=== PATIENT | male | born 1985 | race Caucasian/White ===

== ENCOUNTER 2017-11-30 10:05 | Inpatient (IN) | payer BC ==
[~2017-11-30] VITALS: Ht 180.3 cm; Wt 112.5 kg
[2017-11-30] MEDS ORDERED: ACETAMINOPHEN 500 MG TABLET PO PRN (10:45)
[2017-11-30] MEDS ORDERED: ONDANSETRON PF 4 MG/2 ML VIAL. IV PRN (10:45)
[2017-11-30 11:05] VITALS: BP 122/82
[2017-11-30 11:11] LABS: ALBUMIN 3.6 g/dL (3.4-5.0); ALBUMIN/GLOBULIN RATIO 0.8 (1.0-1.7); CALCIUM 9.1 mg/dL (8.5-10.1); GFR 87.7; POTASSIUM 3.8 mmol/L (3.5-5.1); TOTAL BILIRUBIN 2.3 mg/dL (0.2-1.0); TOTAL PROTEIN 7.9 g/dL (6.4-8.2)
[2017-11-30] MEDS: IV NORMAL SALINE 1,000ML 1,000 ML IV SCH ×2 (11:11→20:46)
[2017-11-30 11:12] LABS: BASO # 0.1 x10^3/uL (0.0-0.2); BASO % 1 % (0-3); EOS # 0.1 x10^3/uL (0.0-0.7); EOS % 1 % (0-3); HEMOGLOBIN 14.7 g/dL (13.0-17.5); LYMPH # 2.4 x10^3/uL (1.0-4.8); LYMPH % 20 % (24-48); MEAN CORPUSCULAR HEMOGLOBIN 30 pg (25-35); MEAN CORPUSCULAR HGB CONC 35 g/dL (31-37); MEAN CORPUSCULAR VOLUME 87 fL (79-100); MONO # 1.5 x10^3/uL (0.0-1.1); MONO % 13 % (0-9); NEUT # 7.9 x10^3uL (1.8-7.7); NEUT % 66 % (31-73); PLATELET COUNT 207 x10^3/uL (140-400); RED BLOOD COUNT 4.83 x10^6/uL (4.30-5.70); RED CELL DISTRIBUTION WIDTH 13.6 % (11.5-14.5)
--- NOTE | 2017-11-30 11:29 | RAD ---
PROCEDURE: CHEST PA LATERAL CLINICAL INDICATION: cough/sob COMPARISON: None FINDINGS: No pneumothorax identified. Cardiac and mediastinal contours unremarkable. No pulmonary consolidation or acute airspace disease. No acute osseous abnormalities identified. IMPRESSION: No pulmonary consolidation or acute airspace disease.
[2017-11-30 11:41] LABS: INFLUENZA A PATIENT NEGATIVE (NEGATIVE); INFLUENZA B PATIENT NEGATIVE (NEGATIVE)
[2017-11-30] MEDS ORDERED: CITA20TA9 PO (13:06)
[2017-11-30] MEDS ORDERED: MULT1TAB52 PO (13:06)
[2017-11-30 14:56] VITALS: BP 121/80
[2017-11-30] MEDS ORDERED: ACETAMINOPHEN 325 MG TABLET PO PRN (15:30)
[2017-11-30] MEDS: cefTRIAXone IV Push 1 GM VIAL. IVP SCH (16:40)
[2017-11-30 18:42] LABS: BACTERIA,URINE MOD /HPF (0-FEW); BILIRUBIN,URINE NEG (NEG); CLARITY,URINE HAZY; COLOR,URINE AMBER; GLUCOSE,URINE NEG (NEG); NITRITE,URINE POS (NEG); RBC,URINE 0 /HPF (0-2); UROBILINOGEN,URINE 8 mg/dL (0.2 mg/dL)
[2017-11-30 18:43] LABS: HYALINE CASTS, URINE OCC /HPF; SQUAMOUS EPITHELIAL CELL,UR OCC /LPF
[2017-11-30 19:27] VITALS: BP 116/75
[2017-11-30] MEDS: CITALOPRAM 20 MG TABLET. PO SCH (20:43)
[2017-11-30] MEDS: LACTOBACILLUS RHAMNOSUS GG 1 CAPSULE. PO SCH (20:43)
[2017-11-30 23:00] VITALS: BP 122/76
[2017-12-01 06:05] VITALS: BP 126/77
[2017-12-01 06:42] LABS: BASO % 0 % (0-3); EOS # 0.1 x10^3/uL (0.0-0.7); EOS % 2 % (0-3); HEMATOCRIT 38.1 % (39.0-53.0); HEMOGLOBIN 13.3 g/dL (13.0-17.5); LYMPH # 1.8 x10^3/uL (1.0-4.8); LYMPH % 20 % (24-48); MEAN CORPUSCULAR HEMOGLOBIN 31 pg (25-35); MEAN CORPUSCULAR HGB CONC 35 g/dL (31-37); MEAN CORPUSCULAR VOLUME 88 fL (79-100); MONO # 1.2 x10^3/uL (0.0-1.1); MONO % 13 % (0-9); NEUT # 5.7 x10^3uL (1.8-7.7); NEUT % 64 % (31-73); PLATELET COUNT 182 x10^3/uL (140-400); RED BLOOD COUNT 4.35 x10^6/uL (4.30-5.70); RED CELL DISTRIBUTION WIDTH 13.7 % (11.5-14.5); WHITE BLOOD COUNT 8.9 x10^3/uL (4.0-11.0)
[2017-12-01 06:50] LABS: CALCIUM 8.6 mg/dL (8.5-10.1); CREATININE 0.9 mg/dL (0.7-1.3); GFR 99.1; POTASSIUM 4.2 mmol/L (3.5-5.1)
[2017-12-01] MEDS: LACTOBACILLUS RHAMNOSUS GG 1 CAPSULE. PO SCH ×2 (08:38→20:41)
[2017-12-01] MEDS: MULTIVITAMIN with MINERAL TABLET. PO SCH (08:38)
[2017-12-01] MEDS ORDERED: FLU VACC QS2017-18 (36MOS+)/PF 0.5 ML SYRINGE. VAX IM ONE (09:00)
[2017-12-01] MEDS: IV NORMAL SALINE 1,000ML 1,000 ML IV SCH ×2 (10:00→20:42)
[2017-12-01 10:45] VITALS: BP 120/83
[2017-12-01 16:11] VITALS: BP 123/84
[2017-12-01] MEDS: cefTRIAXone IV Push 1 GM VIAL. IVP SCH (17:04)
[2017-12-01 19:35] VITALS: BP 166/83
[2017-12-01] MEDS: CITALOPRAM 20 MG TABLET. PO SCH (20:41)
[2017-12-02 05:41] VITALS: BP 120/79
[2017-12-02] MEDS: LACTOBACILLUS RHAMNOSUS GG 1 CAPSULE. PO SCH (09:32)
[2017-12-02] MEDS: MULTIVITAMIN with MINERAL TABLET. PO SCH (09:32)
[2017-12-02 11:05] VITALS: BP 124/81
--- NOTE | 2017-12-02 11:40 | PN ---
DATE: 12/01/2017 SUBJECTIVE: A 32-year-old male admitted with fever, chills, shortness of breath, dehydration. The patient is making fairly good progress overall. OBJECTIVE: VITAL SIGNS: Temperature is at different times in the office were over 100, pulse of 120, respiratory rate 18. Presently, afebrile. HEENT: The patient's head was atraumatic, normocephalic. Eyes: PERRLA without jaundice. The mouth and throat were normal. NECK: Supple, without JVD, carotid bruits. No thyromegaly. LUNGS: Diminished throughout. CARDIOVASCULAR: Tachycardic. ABDOMEN: Soft, nontender. EXTREMITIES: No clubbing, cyanosis, or edema. NEUROLOGIC: Intact. LABORATORY DATA: White count down from 12 to 8. Electrolytes basically normal. C-reactive protein is markedly elevated at 103. The patient received IV fluid. Valproic acid level still pending. IMPRESSION: Fever, leukocytosis, dehydration. PLAN: The patient will continued to be monitored carefully, make further evaluation. Continue fluids and IV antibiotic therapy for now. IVANA MESSINA MD DR: CESAR/yamil JOB#: [id number] / [id number]
--- NOTE | 2017-12-13 19:16 | DS ---
DATE OF DISCHARGE: 12/02/2017 HOSPITAL COURSE: The patient is a 32-year-old male came in with fever, chills, shortness of breath, dehydration. The patient was placed on IV fluids, had an elevated temperature as well as C-reactive protein of 103. The patient was given IV fluids, IV antibiotic therapy. His labs also have an elevated white count of 20% and decreased lymphocytes, sed rate of 41. The patient's C-reactive as noted above. Urine was unremarkable. Serology for influenza was unremarkable. The patient's chest x-ray was no consolidation. The patient made excellent progress with his IV antibiotic of Rocephin. He was given influenza vaccine, . The patient made excellent progress during the rest of his hospitalization and he was discharged home. See discharge medications. He made excellent progress. He was afebrile by the time of his discharge, however, the infection was unknown. So, he had fever of unknown etiology, leukocytosis, dehydration, elevated C-reactive protein. The patient will be discharged home. Follow up as an outpatient, continue on oral antibiotics and make further evaluation once he returns to the office as indicated. IVANA MESSINA MD DR: CESAR/yamil JOB#: [id number] / [id number]
== END 2017-12-02 13:47 | disposition home or self-care (01) | DRG 641 ==
LOC: 1 SOUTH 10:29
PROVIDERS: ADMIT Family Medicine; ATTEND Family Medicine
DX: E86.0 Dehydration (principal); D72.829 Elevated white blood cell count, unspecified; R50.9 Fever, unspecified; R06.02 Shortness of breath
CPT/HCPCS: 36415; 71046; 80048; 80053; 81001; 83605; 85025; 85651; 86140; 87040; 87086; 87804; 90686; J0696; J7030

== ENCOUNTER 2019-01-04 20:37 | Emergency (ER) | payer OTHER, BC ==
[~2019-01-04] VITALS: Ht 180.3 cm; Wt 127.0 kg
[~2019-01-04 20:37] MED LIST: CITA20TA9 PO; MULT1TAB52 PO
--- NOTE | 2019-01-04 21:13 | ED.ADGEN ---
Past History Past Medical History: Anxiety, Migraines Past Surgical History: Tonsillectomy Additional Smoking Information: smokes a pipe Alcohol Use: Occasionally Drug Use: None Adult General Chief Complaint Chief Complaint ankle pain HPI HPI 33 years old male presented to the emergency department with left ankle pain after twisting it no fall he is able to put some pressure on it able to ambulate no restriction movement Review of Systems Review of Systems Constitutional: Denies fever or chills [] Eyes: Denies change in visual acuity, redness, or eye pain [] HENT: Denies nasal congestion or sore throat [] Respiratory: Denies cough or shortness of breath [] Cardiovascular: No additional information not addressed in HPI [] GI: Denies abdominal pain, nausea, vomiting, bloody stools or diarrhea [] : Denies dysuria or hematuria [] Musculoskeletal: Denies back pain or joint pain [] Integument: Denies rash or skin lesions [] Neurologic: Denies headache, focal weakness or sensory changes [] Endocrine: Denies polyuria or polydipsia [] All other systems were reviewed and found to be within normal limits, except as documented in this note. Current Medications Current Medications Current Medications Medications (Trade) Dose Ordered Sig/Blake Start Time Stop Time Status Last Admin Dose Admin Ketorolac Tromethamine (Toradol Im) 60 mg 1X ONCE 01/04/19 21:15 01/04/19 21:16 UNV Allergies Allergies Allergies Coded Allergies Type Severity Reaction Last Updated Verified No Known Drug Allergies 10/30/14 No Physical Exam Physical Exam Constitutional: Well developed, well nourished, no acute distress, non-toxic appearance. [] HENT: Normocephalic, atraumatic, bilateral external ears normal, oropharynx moist, no oral exudates, nose normal. [] Eyes: PERRLA, EOMI, conjunctiva normal, no discharge. [] Neck: Normal range of motion, no tenderness, supple, no stridor. [] Cardiovascular:Heart rate regular rhythm, no murmur [] Lungs & Thorax: Bilateral breath sounds clear to auscultation [] Abdomen: Bowel sounds normal, soft, no tenderness, no masses, no pulsatile masses. [] Skin: Warm, dry, no erythema, no rash. [] Back: No tenderness, no CVA tenderness. [] Extremities: Left ankle minimal swelling minimal restriction of movement due to pain] Neurologic: Alert and oriented X 3, normal motor function, normal sensory function, no focal deficits noted. [] Psychologic: Affect normal, judgement normal, mood normal. [] Current Patient Data Vital Signs Vital Signs Date Time Temp Pulse Resp B/P (MAP) Pulse Ox O2 Delivery O2 Flow Rate FiO2 01/04/19 20:40 98.3 93 18 94 Room Air EKG EKG [] Radiology/Procedures Radiology/Procedures [] Course & Med Decision Making Course & Med Decision Making Pertinent Labs and Imaging studies reviewed. (See chart for details) [] Final Impression Final Impression [] Problems: (1) Ankle sprain Qualifiers: Qualified Codes: S93.402A - Sprain of unspecified ligament of left ankle, initial encounter Dragon Disclaimer Dragon Disclaimer This electronic medical record was generated, in whole or in part, using a voice recognition dictation system. GALILEO PORTER MD Jan 04, 2019 21:13
[2019-01-04] MEDS ORDERED: HYDR-3165 PO (21:28)
[2019-01-04 21:30] VITALS: BP 135/80
[2019-01-04] MEDS ORDERED: KETOROLAC 60 MG/2 ML VIAL. IM ONE (21:30)
--- NOTE | 2019-01-04 23:01 | RAD ---
Three-view left ankle radiographs 01/04/2019 CLINICAL HISTORY: Injury to the left ankle. AP, lateral and oblique digital radiographs of the left ankle were obtained. The left ankle mortise is intact. Soft tissue swelling is seen adjacent to the lateral malleolus of the left ankle. IMPRESSION: No fracture or dislocation of the left ankle is seen. Electronically signed by: Sekou Cruz MD (01/04/2019 10:58 PM) [facility]
== END 2019-01-04 21:30 | disposition home or self-care (01) ==
LOC: ER 20:37
DX: S93.402A Sprain of unspecified ligament of left ankle, initial encounter (principal); F41.9 Anxiety disorder, unspecified; G43.909 Migraine, unspecified, not intractable, without status migrainosus; F17.200 Nicotine dependence, unspecified, uncomplicated; X50.1XXA Overexertion from prolonged static or awkward postures, initial encounter; Y93.89 Activity, other specified; Y92.89 Other specified places as the place of occurrence of the external cause; Y99.8 Other external cause status
CPT/HCPCS: 29515; 73610; 96372; 99284; J1885

== ENCOUNTER 2019-03-12 13:24 | Emergency (ER) | payer BC, OTHER ==
[~2019-03-12] VITALS: Ht 180.3 cm; Wt 129.0 kg
[~2019-03-12 13:24] MED LIST changes: +HYDR-3165 PO
[2019-03-12] MEDS ORDERED: IV NORMAL SALINE 1,000ML 1,000 ML IV ONE ×2 (13:45→15:00)
--- NOTE | 2019-03-12 13:50 | PHYS DOC ---
Past History Past Medical History: Anxiety, Depression, Migraines Past Surgical History: Tonsillectomy Alcohol Use: Occasionally Drug Use: None Adult General Chief Complaint Chief Complaint: ABDOMINAL PAIN HPI HPI 33-year-old male presents with left lower quadrant abdominal pain. The patient was feeling normal yesterday. Not long after he woke up this morning, he began to have a left lower quadrant cramping. The pain has increased and radiated out to the right throughout the day. He discussed it with his primary care physician and they advised him to come to the emergency room. Patient denies fever or chills. He states that the pain is an 8 out of 10 with certain movements. At rest it is 5 out of 10. He has not had pain like this before. He has had 1 previous kidney stone, but it did not feel this way. He denies any abdominal surgeries. He is not nauseated and has had no vomiting. Review of Systems Review of Systems Constitutional: Denies fever or chills [] Eyes: Denies change in visual acuity, redness, or eye pain [] HENT: Denies nasal congestion or sore throat [] Respiratory: Denies cough or shortness of breath [] Cardiovascular: No additional information not addressed in HPI [] GI: LLQ abdominal pain. Denies nausea, vomiting, bloody stools or diarrhea [] : Denies dysuria or hematuria [] Musculoskeletal: Denies back pain or joint pain [] Integument: Denies rash or skin lesions [] Neurologic: Denies headache, focal weakness or sensory changes [] Endocrine: Denies polyuria or polydipsia [] All other systems were reviewed and found to be within normal limits, except as documented in this note. Current Medications Current Medications Current Medications Medications (Trade) Dose Ordered Sig/Blake Start Time Stop Time Status Last Admin Dose Admin Ondansetron HCl (Zofran) 4 mg 1X ONCE 03/12/19 14:15 03/12/19 14:16 Sodium Chloride 1,000 ml @ 1,000 mls/hr 1X ONCE 03/12/19 13:45 03/12/19 14:44 Allergies Allergies Allergies Coded Allergies Type Severity Reaction Last Updated Verified No Known Drug Allergies 10/30/14 No Physical Exam Physical Exam Constitutional: Well developed, obese, well nourished, no acute distress, non-to xic appearance. [] HENT: Normocephalic, atraumatic, bilateral external ears normal, oropharynx moist, no oral exudates, nose normal. [] Eyes: PERRLA, EOMI, conjunctiva normal, no discharge. [] Neck: Normal range of motion, no tenderness, supple, no stridor. [] Cardiovascular:Heart rate regular rhythm, no murmur [] Lungs & Thorax: Bilateral breath sounds clear to auscultation [] Abdomen: Bowel sounds normal, soft, mild LLQ tenderness without rebound or guarding, no masses, no pulsatile masses. [] Skin: Warm, dry, no erythema, no rash. [] Back: No tenderness, no CVA tenderness. [] Extremities: No tenderness, no cyanosis, no clubbing, ROM intact, no edema. [] Neurologic: Alert and oriented X 3, normal motor function, normal sensory function, no focal deficits noted. [] Psychologic: Affect normal, judgement normal, mood normal. [] Current Patient Data Vital Signs Vital Signs Date Time Temp Pulse Resp B/P (MAP) Pulse Ox O2 Delivery O2 Flow Rate FiO2 03/12/19 13:34 98.0 80 16 97 Room Air EKG EKG [] Radiology/Procedures Radiology/Procedures [] Impressions: PQRS Compliance Statement: One or more of the following individualized dose reduction techniques were utilized for this examination: 1. Automated exposure control 2. Adjustment of the mA and/or kV according to patient size 3. Use of iterative reconstruction technique CT ABD PELV W/ IV CONTRST ONLY Clinical Indication: SHARP LLQ PAIN SINCE EARLY THIS MORNING Comparison: None. Technique: Helical CT imaging of the abdomen and pelvis is performed after 75 cc of Omnipaque 300 IV contrast. Oral contrast not given. Findings: Lung bases essentially clear. Cardiac size normal. Liver, gallbladder, spleen, pancreas, adrenal glands, and abdominal aorta are normal. Kidneys enhance symmetrically, no hydronephrosis. Small right upper pole renal cyst. Stomach unremarkable. Small fat-containing umbilical hernia. No dilated small bowel. The appendix is normal. There is no colon wall thickening. Subcentimeter mesenteric lymph nodes. No abdominal adenopathy or free fluid. In the left lower quadrant there is mild inflammation of an epiploic appendage of the proximal sigmoid colon as seen on image 66, coronal image 18. There is central fat density with a thin soft tissue density rim with mild surrounding inflammation. The urinary bladder is mostly decompressed, otherwise normal. The prostate and seminal vesicles are normal. There is no pelvic free fluid. Probable bone island in the right superior acetabulum. No acute bone abnormality. Hemangioma of the T8 vertebral body. IMPRESSION: Epiploic appendagitis of the proximal sigmoid colon. Electronically signed by: Jose Santos MD (03/12/2019 2:22 PM) [id number] DICTATED AND SIGNED BY: JOSE SANTOS MD DATE: 03/12/19 1422 CC: RAH SHARIF DO; TOMMY BAUTISTA ~ Course & Med Decision Making Course & Med Decision Making Pertinent Labs and Imaging studies reviewed. (See chart for details) Asians labs are unremarkable. The patient's CT scan is significant for epiploic appendagitis. This is a self-limiting condition that normally only requires conservative management. I will advise patient to take NSAIDs the next 5 days. If his symptoms do not improve, he will discuss surgical referral with his primary care physician. He is stable for discharge at this time. [] Dragon Disclaimer Dragon Disclaimer This electronic medical record was generated, in whole or in part, using a voice recognition dictation system. Departure Departure: Impression: Primary Impression: Epiploic appendagitis Disposition: HOME, SELF-CARE Condition: STABLE Referrals: TOMMY BAUTISTA NP-C (PCP) Patient Instructions: Abdominal Pain (Nonspecific) RAH SHARIF DO Mar 12, 2019 13:50
[2019-03-12 13:54] LABS: BASO % 0 % (0-3); EOS # 0.2 x10^3/uL (0.0-0.7); EOS % 2 % (0-3); HEMATOCRIT 44.1 % (39.0-53.0); HEMOGLOBIN 15.3 g/dL (13.0-17.5); LYMPH # 1.8 x10^3/uL (1.0-4.8); LYMPH % 27 % (24-48); MEAN CORPUSCULAR HEMOGLOBIN 31 pg (25-35); MEAN CORPUSCULAR HGB CONC 35 g/dL (31-37); MEAN CORPUSCULAR VOLUME 89 fL (79-100); MONO # 0.6 x10^3/uL (0.0-1.1); MONO % 9 % (0-9); NEUT # 4.2 x10^3uL (1.8-7.7); NEUT % 62 % (31-73); PLATELET COUNT 240 x10^3/uL (140-400); RED BLOOD COUNT 4.93 x10^6/uL (4.30-5.70); RED CELL DISTRIBUTION WIDTH 14.3 % (11.5-14.5); WHITE BLOOD COUNT 6.9 x10^3/uL (4.0-11.0)
[2019-03-12 14:08] LABS: ALBUMIN 3.6 g/dL (3.4-5.0); CALCIUM 8.9 mg/dL (8.5-10.1); CREATININE 0.9 mg/dL (0.7-1.3); GFR 98.4; POTASSIUM 3.6 mmol/L (3.5-5.1); TOTAL BILIRUBIN 0.9 mg/dL (0.2-1.0); TOTAL PROTEIN 7.1 g/dL (6.4-8.2)
[2019-03-12] MEDS ORDERED: ONDANSETRON PF 4 MG/2 ML VIAL. IV ONE (14:15)
[2019-03-12] MEDS ORDERED: IOHEXOL 300 MG/ML 75 ML VIAL. IV ONE (14:15)
--- NOTE | 2019-03-12 14:25 | RAD ---
PQRS Compliance Statement: One or more of the following individualized dose reduction techniques were utilized for this examination: 1. Automated exposure control 2. Adjustment of the mA and/or kV according to patient size 3. Use of iterative reconstruction technique CT ABD PELV W/ IV CONTRST ONLY Clinical Indication: SHARP LLQ PAIN SINCE EARLY THIS MORNING Comparison: None. Technique: Helical CT imaging of the abdomen and pelvis is performed after 75 cc of Omnipaque 300 IV contrast. Oral contrast not given. Findings: Lung bases essentially clear. Cardiac size normal. Liver, gallbladder, spleen, pancreas, adrenal glands, and abdominal aorta are normal. Kidneys enhance symmetrically, no hydronephrosis. Small right upper pole renal cyst. Stomach unremarkable. Small fat-containing umbilical hernia. No dilated small bowel. The appendix is normal. There is no colon wall thickening. Subcentimeter mesenteric lymph nodes. No abdominal adenopathy or free fluid. In the left lower quadrant there is mild inflammation of an epiploic appendage of the proximal sigmoid colon as seen on image 66, coronal image 18. There is central fat density with a thin soft tissue density rim with mild surrounding inflammation. The urinary bladder is mostly decompressed, otherwise normal. The prostate and seminal vesicles are normal. There is no pelvic free fluid. Probable bone island in the right superior acetabulum. No acute bone abnormality. Hemangioma of the T8 vertebral body. IMPRESSION: Epiploic appendagitis of the proximal sigmoid colon. Electronically signed by: Jose Hyatt MD (03/12/2019 2:22 PM) [id number]
[2019-03-12 14:51] VITALS: BP 116/76
[2019-03-12 15:44] LABS: BACTERIA,URINE 0 /HPF (0-FEW); BILIRUBIN,URINE NEG (NEG); CLARITY,URINE CLEAR; COLOR,URINE YELLOW; GLUCOSE,URINE NEG (NEG); NITRITE,URINE NEG (NEG); RBC,URINE 0 /HPF (0-2); SQUAMOUS EPITHELIAL CELL,UR OCC /LPF; UROBILINOGEN,URINE 0.2 mg/dL (0.2 mg/dL); WBC,URINE 0 /HPF (0-4)
== END 2019-03-12 15:57 | disposition home or self-care (01) ==
LOC: ER 13:24
DX: K63.89 Other specified diseases of intestine (principal); F41.9 Anxiety disorder, unspecified; F32.9 Major depressive disorder, single episode, unspecified; G43.909 Migraine, unspecified, not intractable, without status migrainosus
CPT/HCPCS: 36415; 74177; 80053; 81001; 85025; 96374; 99285; J2405; Q9967; J7030

== ENCOUNTER → 2020-03-18 | Outpatient (CLI) | payer BC ==
[~2020-03-18] MED LIST changes: +MULT-445 PO; -MULT1TAB52 PO
[2020-03-18 15:35] LABS: BASO % 0 % (0-3); EOS # 0.1 x10^3/uL (0.0-0.7); EOS % 2 % (0-3); HEMATOCRIT 44.7 % (39.0-53.0); HEMOGLOBIN 15.3 g/dL (13.0-17.5); LYMPH # 2.1 x10^3/uL (1.0-4.8); LYMPH % 31 % (24-48); MEAN CORPUSCULAR HEMOGLOBIN 31 pg (25-35); MEAN CORPUSCULAR HGB CONC 34 g/dL (31-37); MEAN CORPUSCULAR VOLUME 90 fL (79-100); MONO # 0.6 x10^3/uL (0.0-1.1); MONO % 9 % (0-9); NEUT # 3.9 x10^3uL (1.8-7.7); NEUT % 59 % (31-73); PLATELET COUNT 246 x10^3/uL (140-400); RED BLOOD COUNT 4.98 x10^6/uL (4.30-5.70); RED CELL DISTRIBUTION WIDTH 14.4 % (11.5-14.5); WHITE BLOOD COUNT 6.7 x10^3/uL (4.0-11.0)
--- NOTE | 2020-03-18 15:35 | RAD ---
INDICATION: Cough COMPARISON: November 2017 FINDINGS: 2 view of chest obtained. Cardiac silhouette is unremarkable. Within the retrocardiac region on the lateral view there is some mild haziness. IMPRESSION: * Mild haziness in the retrocardiac region on the lateral view. Could be secondary to atelectasis but early infiltrate not excluded. Electronically signed by: Bernard Barnhart MD (03/18/2020 3:33 PM) [id number]
[2020-03-18 15:44] LABS: CALCIUM 8.8 mg/dL (8.5-10.1); CREATININE 0.8 mg/dL (0.7-1.3); POTASSIUM 3.4 mmol/L (3.5-5.1)
[2020-03-18 15:50] LABS: ALBUMIN 3.7 g/dL (3.4-5.0); ALBUMIN/GLOBULIN RATIO 1.1 (1.0-1.7); MAGNESIUM 2.2 mg/dL (1.8-2.4); TOTAL BILIRUBIN 0.5 mg/dL (0.2-1.0); TOTAL PROTEIN 7.1 g/dL (6.4-8.2)
[2020-03-19 13:16] LABS: THYROID STIM HORMONE (TSH) 1.573 uIU/mL (0.358-3.740)
== END ==
LOC: PMG 14:59
PROVIDERS: ATTEND Registered Nurse
DX: Z13.29 Encounter for screening for other suspected endocrine disorder (principal); Z13.220 Encounter for screening for lipoid disorders; R07.9 Chest pain, unspecified; R42 Dizziness and giddiness; I10 Essential (primary) hypertension
CPT/HCPCS: 36415; 71046; 80053; 80061; 82550; 83735; 84443; 84484; 85025; 85379

== ENCOUNTER 2020-07-06 10:48 | Emergency (ER) | payer BC ==
[~2020-07-06] VITALS: Ht 180.3 cm; Wt 139.9 kg
[2020-07-06 11:17] LABS: BASO # 0.1 x10^3/uL (0.0-0.2); BASO % 1 % (0-3); EOS # 0.1 x10^3/uL (0.0-0.7); EOS % 2 % (0-3); HEMATOCRIT 43.8 % (39.0-53.0); HEMOGLOBIN 15.2 g/dL (13.0-17.5); LYMPH # 1.7 x10^3/uL (1.0-4.8); LYMPH % 29 % (24-48); MEAN CORPUSCULAR HEMOGLOBIN 31 pg (25-35); MEAN CORPUSCULAR HGB CONC 35 g/dL (31-37); MEAN CORPUSCULAR VOLUME 90 fL (79-100); MONO # 0.6 x10^3/uL (0.0-1.1); MONO % 11 % (0-9); NEUT # 3.5 x10^3uL (1.8-7.7); NEUT % 58 % (31-73); PLATELET COUNT 235 x10^3/uL (140-400); RED BLOOD COUNT 4.85 x10^6/uL (4.30-5.70); RED CELL DISTRIBUTION WIDTH 13.8 % (11.5-14.5); WHITE BLOOD COUNT 6.1 x10^3/uL (4.0-11.0)
--- NOTE | 2020-07-06 11:20 | PHYS DOC ---
Past History Past Medical History: Anxiety, Depression, Hypertension, Migraines Past Surgical History: Tonsillectomy Additional Smoking Information: 5 MONTHS SMOKE-FREE Alcohol Use: None Drug Use: None General Adult EDM: Chief Complaint: CHEST PAIN HPI: HPI: Patient is a 35-year-old male who presented to ER today for evaluation of epigastric abdominal pain and chest pain started at 7 AM this morning. Patient denies any nausea vomiting, no cough, no fever. Patient denies the pain being radiate anywhere. Patient said the pain gets worse whenever he moves his chest or cough or taking a deep breath. Patient denies drinking alcohol, he is not a smoker, no history of heart disease, no history of diabetic, no family history of heart disease or blood clot disorder. Patient denies any recent travel or operation. Patient has history of hypertension. Review of Systems: Review of Systems: Constitutional: Denies fever or chills Eyes: Denies change in visual acuity HENT: Denies nasal congestion or sore throat Respiratory: Denies cough or shortness of breath Cardiovascular: Positive for chest pain, no edema GI: Denies abdominal pain, nausea, vomiting, bloody stools or diarrhea : Denies dysuria Musculoskeletal: Denies back pain or joint pain Integument: Denies rash Neurologic: Denies headache, focal weakness or sensory changes Endocrine: Denies polyuria or polydipsia Lymphatic: Denies swollen glands Psychiatric: Denies depression or anxiety Heart Score: HEART Score for Chest Pain: HEART Score for Chest Pain Response (Comments) Value History Slighlty/Non-Suspicious 0 ECG Normal 0 Age < 45 0 Risk Factors 1 or 2 Risk Factors 1 Troponin < Normal Limit 0 Total 1 Risk Factors: Risk Factors: DM, Current or recent (<one month) smoker, HTN, HLP, family history of CAD, obesity. Risk Scores: Score 0 - 3: 2.5% MACE over next 6 weeks - Discharge Home Score 4 - 6: 20.3% MACE over next 6 weeks - Admit for Clinical Observation Score 7 - 10: 72.7% MACE over next 6 weeks - Early Invasive Strategies Allergies: Allergies: Allergies Coded Allergies Type Severity Reaction Last Updated Verified No Known Drug Allergies 10/30/14 No Physical Exam: PE: Constitutional: Well developed, well nourished, no acute distress, non-toxic appearance. [] HENT: Normocephalic, atraumatic, bilateral external ears normal, oropharynx moist, no oral exudates, nose normal. [] Eyes: PERRLA, EOMI, conjunctiva normal, no discharge. [] Neck: Normal range of motion, no tenderness, supple, no stridor. [] Cardiovascular:Heart rate regular rhythm, no murmur [] Lungs & Thorax: Bilateral breath sounds clear to auscultation [] Abdomen: Bowel sounds normal, soft, no tenderness, no masses, no pulsatile masses. [] Skin: Warm, dry, no erythema, no rash. [] Back: No tenderness, no CVA tenderness. [] Extremities: No tenderness, no cyanosis, no clubbing, ROM intact, no edema. [] Neurologic: Alert and oriented X 3, normal motor function, normal sensory function, no focal deficits noted. [] Psychologic: Affect normal, judgement normal, mood normal. [] Current Patient Data: Vital Signs: Vital Signs Date Time Temp Pulse Resp B/P (MAP) Pulse Ox O2 Delivery O2 Flow Rate FiO2 07/06/20 10:55 98.0 77 20 139/92 (108) 98 Room Air EKG: EKG: EKG was done at 1051, heart rate of 77 beats per minutes, normal sinus rhythm, no ST segment elevation. No ectopy, normal conduction. Radiology/Procedures: Radiology/Procedures: [][place] [address] IMAGING REPORT Signed PATIENT: HERMELINDA SCHMIDT ACCOUNT: [id number] : 1985 LOCATION: ER AGE: 35 SEX: M EXAM STATUS: REG ER ORD. PHYSICIAN: IVANA BACA DO REASON: chest pain, soa, 100mls omni 350 PROCEDURE: CT ANGIOGRAPHY CHEST EXAM: CT ANGIOGRAPHY OF THE CHEST WITH AND WITHOUT CONTRAST. HISTORY: Chest pain, shortness of breath. TECHNIQUE: Computed tomographic angiography of the chest was performed before and after the intravenous administration of iodinated contrast. 3-D maximum intensity projections were also performed. One or more of the following individualized dose reduction techniques were utilized for this examination: 1. Automated exposure control. 2. Adjustment of the mA and/or kV according to patient size. 3. Use of iterative reconstruction technique. COMPARISON: None. FINDINGS: Images of the upper abdomen reveal no acute abnormality. Bone windows reveal no suspicious lesions. Opacification of the pulmonary arterial tree is suboptimal, limiting sensitivity for small peripheral pulmonary emboli. None are seen. There is no aortic dissection or aneurysm. Soft tissue density within the anterior mediastinal fat is consistent with a thymic remnant or rebound thymic hyperplasia. There are no pathologically enlarged mediastinal or axillary lymph nodes. There is no pleural or pericardial effusion. The heart is not enlarged. Lung windows reveal mild dependent atelectasis. IMPRESSION: 1. Limited opacification of the pulmonary arterial tree lowers sensitivity for small peripheral pulmonary emboli. None are seen. Electronically signed by: Paulette Prabhakar MD (07/06/2020 2:32 PM) [id number] DICTATED AND SIGNED BY: KRISHNA PRABHAKAR MD DATE: 07/06/20 1432 CC: IVANA BACA DO; ATIF PIERSON ~ Course & Med Decision Making: Course & Med Decision Making Pertinent Labs and Imaging studies reviewed. (See chart for details) Patient is a 35-year-old male who was evaluated in ER due to epigastric chest pain, EKG and enzyme, CTA chest, were normal. Patient will be discharged home, he will instructed follow-up with his family doctor for further evaluation and treatment outpatient. Sam Disclaimer: Sam Disclaimer: This electronic medical record was generated, in whole or in part, using a voice recognition dictation system. Departure Departure: Impression: Primary Impression: Chest pain Disposition: 01 HOME/RESIDENCE PRIOR TO ADM Condition: STABLE Referrals: TOMMY BAUTISTA [employer]IVER-C (PCP) please call healthcare provider for follow up . Patient Instructions: Chest Pain (Nonspecific) Justification of Admission: Justification of Admission: Justification of Admission Dx: N/A IVANA BACA DO Jul 06, 2020 11:20
[2020-07-06 11:22] LABS: CALCIUM 9.2 mg/dL (8.5-10.1); CREATININE 0.9 mg/dL (0.7-1.3); GFR 97.2; POTASSIUM 3.9 mmol/L (3.5-5.1)
[2020-07-06 11:28] LABS: ALBUMIN 3.7 g/dL (3.4-5.0); ALBUMIN/GLOBULIN RATIO 1.2 (1.0-1.7); TOTAL BILIRUBIN 0.6 mg/dL (0.2-1.0); TOTAL PROTEIN 6.8 g/dL (6.4-8.2)
--- NOTE | 2020-07-06 11:52 | RAD ---
EXAM: CHEST ONE VIEW. HISTORY: Chest pain. COMPARISON: 03/18/2020. FINDINGS: A frontal view of the chest is obtained. There are no confluent infiltrates. There is no pneumothorax or pleural effusion. The heart is not enlarged. IMPRESSION: 1. No confluent infiltrates. Electronically signed by: Paulette Prabhakar MD (07/06/2020 11:49 AM) [id number]
[2020-07-06] MEDS ORDERED: IOHEXOL 350 MG/ML 100 ML VIAL. IV ONE (12:15)
[2020-07-06 12:37] LABS: BILIRUBIN,URINE NEG (NEG); CLARITY,URINE CLEAR; COLOR,URINE YELLOW; GLUCOSE,URINE NEG (NEG)
[2020-07-06 12:38] LABS: AMORPHOUS SEDIMENT,UR PRESENT /HPF; BACTERIA,URINE 0 /HPF (0-FEW); NITRITE,URINE NEG (NEG); RBC,URINE RARE /HPF (0-2); UROBILINOGEN,URINE 0.2 mg/dL (0.2 mg/dL); WBC,URINE 0 /HPF (0-4)
[2020-07-06 12:54] VITALS: BP 133/92
--- NOTE | 2020-07-06 13:10 | EKG ---
[address] [address] Test Date: 2020-07-06 Test Time: 10:51:34 Pat Name: HERMELINDA SCHMIDT Department: Room: Gender: M Testing Specialist: CATA : 1985 Requested By: IVANA BACA Order Number: [id number] Reading MD: Measurements Intervals [place] Rate: 77 P: 28 MI: 190 QRS: -11 QRSD: 86 T: 7 QT: 340 QTc: 386 Interpretive Statements SINUS RHYTHM LEFTWARD AXIS OTHERWISE NORMAL ECG RI6.02 No previous ECG available for comparison
--- NOTE | 2020-07-06 14:35 | RAD ---
EXAM: CT ANGIOGRAPHY OF THE CHEST WITH AND WITHOUT CONTRAST. HISTORY: Chest pain, shortness of breath. TECHNIQUE: Computed tomographic angiography of the chest was performed before and after the intravenous administration of iodinated contrast. 3-D maximum intensity projections were also performed. One or more of the following individualized dose reduction techniques were utilized for this examination: 1. Automated exposure control. 2. Adjustment of the mA and/or kV according to patient size. 3. Use of iterative reconstruction technique. COMPARISON: None. FINDINGS: Images of the upper abdomen reveal no acute abnormality. Bone windows reveal no suspicious lesions. Opacification of the pulmonary arterial tree is suboptimal, limiting sensitivity for small peripheral pulmonary emboli. None are seen. There is no aortic dissection or aneurysm. Soft tissue density within the anterior mediastinal fat is consistent with a thymic remnant or rebound thymic hyperplasia. There are no pathologically enlarged mediastinal or axillary lymph nodes. There is no pleural or pericardial effusion. The heart is not enlarged. Lung windows reveal mild dependent atelectasis. IMPRESSION: 1. Limited opacification of the pulmonary arterial tree lowers sensitivity for small peripheral pulmonary emboli. None are seen. Electronically signed by: Paulette Prabhakar MD (07/06/2020 2:32 PM) [id number]
== END 2020-07-06 15:15 | disposition home or self-care (01) ==
LOC: ER 10:48
DX: R07.89 Other chest pain (principal); R10.13 Epigastric pain; F41.9 Anxiety disorder, unspecified; F32.9 Major depressive disorder, single episode, unspecified; I10 Essential (primary) hypertension; G43.909 Migraine, unspecified, not intractable, without status migrainosus; F17.200 Nicotine dependence, unspecified, uncomplicated
CPT/HCPCS: 36415; 71045; 71275; 80053; 81001; 83690; 83735; 84484; 85025; 85610; 85730; 93005; 99285; Q9967

== ENCOUNTER 2021-03-25 17:28 | Emergency (ER) | payer BC ==
[~2021-03-25] VITALS: Ht 180.3 cm; Wt 140.0 kg
[2021-03-25 17:57] VITALS: BP 127/101
--- NOTE | 2021-03-25 18:00 | PHYS DOC ---
Past History Past Medical History: Anxiety, Constipation, Depression, Diverticulitis, Hypertension, Migraines Past Surgical History: Tonsillectomy Alcohol Use: None Drug Use: None General Adult EDM: Chief Complaint: ABDOMINAL PAIN HPI: HPI: " I ve been hurting down here on Lt...My doctor says it Diverticulitis.. but it really been hurting tonight..." Patient is a 35 year old male who presents with above hx of abdomen pain Lt. mid lower abd. patient been told in the past see may have diverticulitis. Patient reports pain has been constant since approximately 130 today. Patient did eat today. Has had normal stools. Patient localizes pain on rebound to the right mid abdomen. No flank pain. Patient denies any travel. No history of bad food and take. No History of significant ill contacts. No history immunosuppression. Pt. f edvin with Laura. Review of Systems: Review of Systems: Constitutional: Denies fever or chills Eyes: Denies change in visual acuity HENT: Denies nasal congestion or sore throat Respiratory: Denies cough or shortness of breath Cardiovascular: Denies chest pain or edema GI: Severe mid left abdominal pain, nausea. No, vomiting, bloody stools or diarrhea : Denies dysuria Musculoskeletal: Denies back pain or joint pain Integument: Denies rash Neurologic: Denies headache, focal weakness or sensory changes Endocrine: Denies polyuria or polydipsia Lymphatic: Denies swollen glands Psychiatric: Denies depression or anxiety Family History: Family History: Noncontributory presentation Current Medications: Current Meds: See nursing for home meds Allergies: Allergies: Allergies Coded Allergies Type Severity Reaction Last Updated Verified No Known Drug Allergies 10/30/14 No Physical Exam: PE: Constitutional: in acute distress, non-toxic appearance. [] HENT: Normocephalic, atraumatic, bilateral external ears normal, oropharynx moist, no oral exudates, nose normal. [] Eyes: PERRLA, EOMI, conjunctiva normal, no discharge. [] Neck: Normal range of motion, no tenderness, supple, no stridor. [] Cardiovascular:Heart rate regular rhythm, no murmur [] Lungs & Thorax: Bilateral breath sounds "apex on auscultation . Bilateral basilar crackles. Abdomen: Bowel sounds decreased,, soft, severe mid left lower abdomen tenderness, no pulsatile masses. Obese.. Rebound to mid left lower abdomen. Distended. Skin: Warm, dry, no erythema, no rash. [] Back: No tenderness, no CVA tenderness. [] Extremities: No tenderness, no cyanosis, no clubbing, ROM intact, no edema. No psoas sign. Neurologic: Alert and oriented X 3, normal motor function, normal sensory function, no focal deficits noted. [] Psychologic: Anxious, judgement normal, mood normal. [] EKG: EKG: My interpretation EKG shows a sinus rhythm 82 bpm. [] Radiology/Procedures: Radiology/Procedures: [][address] [address] IMAGING REPORT Signed PATIENT: HERMELINDA SCHMIDT ACCOUNT: [id number] : 1985 LOCATION: ER AGE: 35 SEX: M EXAM STATUS: REG ER ORD. PHYSICIAN: CAMMIE SCHMIDT MD REASON: pain PROCEDURE: ACUTE ABDOMEN SERIES Exam: Acute abdominal series INDICATION: Pain TECHNIQUE: Frontal view of the chest and upright and supine views the abdomen Comparisons: None FINDINGS: The cardiomediastinal silhouette and pulmonary vessels are within normal limits. The lung and pleural spaces are clear. Air and stool are noted throughout the colon to level the rectum in a nonobstructive bowel gas pattern. No suspicious osseous lesions or acute fractures. IMPRESSION: 1. No acute cardiopulmonary process. 2. No acute osseous abnormality. Electronically signed by: Mariluz Lin MD (03/25/2021 6:24 PM) [facility] DICTATED AND SIGNED BY: MARILUZ LIN MD DATE: 03/25/211821 CC: CAMMIE SCHMIDT MD; CAROL SERRANO [id number] [address] [place] [id number] IMAGING REPORT [address] [address] IMAGING REPORT Signed PATIENT: HERMELINDA SCHMIDT ACCOUNT: [id number] : 1985 LOCATION: ER AGE: 35 SEX: M EXAM STATUS: REG ER ORD. PHYSICIAN: CAMMIE SCHMIDT MD REASON: pain PROCEDURE: ACUTE ABDOMEN SERIES Exam: Acute abdominal series INDICATION: Pain TECHNIQUE: Frontal view of the chest and upright and supine views the abdomen Comparisons: None FINDINGS: The cardiomediastinal silhouette and pulmonary vessels are within normal limits. The lung and pleural spaces are clear. Air and stool are noted throughout the colon to level the rectum in a nonobstructive bowel gas pattern. No suspicious osseous lesions or acute fractures. IMPRESSION: 1. No acute cardiopulmonary process. 2. No acute osseous abnormality. Electronically signed by: Mariluz Lin MD (03/25/2021 6:24 PM) [facility] DICTATED AND SIGNED BY: MARILUZ LIN MD DATE: 03/25/211821 CC: CAMMIE SCHMIDT MD; CAROL SERRANO Signed PATIENT: HERMELINDA SCHMIDT ACCOUNT: [id number] : 1985 LOCATION: ER AGE: 35 SEX: M EXAM STATUS: REG ER ORD. PHYSICIAN: CAMMIE SCHMIDT MD REASON: OMNI 300,75ML IV.OMNI 240,30ML PO.LT LOWER ABD & FLANK PAIN PROCEDURE: CT ABD PELV W/ORAL&IV CONTRAST EXAMINATION: CT ABDOMEN+PELVIS W (CT ABDOMEN/PELVIS WITH IV CONTRAST) CLINICAL HISTORY: Left lower abdominal/flank pain. History of diverticulitis. TECHNIQUE: CT of the abdomen and pelvis was performed using standard technique, scanning from just above the dome of the diaphragm to the symphysis pubis following administration of intravenous contrast. CT Dose Reduction Employed: One or more of the following individualized dose reduction techniques were utilized for this examination: 1. Automated exposure control 2. Adjustment of the mA and/or kV according to patient size 3. Use of iterative reconstruction technique. COMPARISON: 03/12/2019 FINDINGS: Minimal bibasilar subsegmental atelectasis. Liver, nondistended gallbladder, pancreas, spleen, and adrenal glands unremarkable. Enlarged right renal cyst measuring up to 2.4 cm, previously 1.8 cm. Minimally filled urinary bladder suboptimally evaluated. Epiploic appendicitis along the anterior margin of the mid to distal descending colon. No diverticulosis. No dilated bowel. Normal appendix. No abdominal aortic or iliac artery aneurysm. Multiple prominent but nonenlarged mesenteric lymph nodes, nonspecific. Grade 1 L5-S1 retrolisthesis with probable remote healed bilateral L5 spondylolysis, similar to prior study. T8 vertebral hemangioma. IMPRESSION: Epiploic appendicitis along the mid to distal descending colon. Enlarged right renal cyst. Electronically signed by: Daron Quezada DO (03/25/2021 8:09 PM) [facility] DICTATED AND SIGNED BY: DARON QUEZADA DO DATE: 03/25/211958 CC: CAMMIE SCHMIDT MD; CAROL SERRANO ~MTH0 0 Heart Score: C/O Chest Pain: N/A HEART Score for Chest Pain: HEART Score for Chest Pain Response (Comments) Value History Slighlty/Non-Suspicious 0 ECG Normal 0 Age < 45 0 Risk Factors 1 or 2 Risk Factors 1 Troponin < Normal Limit 0 Total 1 Risk Factors: Risk Factors: DM, Current or recent (<one month) smoker, HTN, HLP, family history of CAD, obesity. Risk Scores: Score 0 - 3: 2.5% MACE over next 6 weeks - Discharge Home Score 4 - 6: 20.3% MACE over next 6 weeks - Admit for Clinical Observation Score 7 - 10: 72.7% MACE over next 6 weeks - Early Invasive Strategies Course & Med Decision Making: Course & Med Decision Making Pertinent Labs and Imaging studies reviewed. (See chart for details) Discussed history, testing and treatment plan with Dr. Wilde. Transfer to [facility]. Plan surgical consult. Discussed Dr. Pierre. Will consult on pt. tomorrow. Impression; 1. Abdomen Pain - 2. Epiploic appendicitis Mid to distal descending colon [] Dragon Disclaimer: Dragon Disclaimer: This electronic medical record was generated, in whole or in part, using a voice recognition dictation system. Departure Departure: Referrals: CAROL SERRANO (PCP) Sam Disclaimer This chart was dictated in whole or in part using Voice Recognition software in a busy, high-work load, and often noisy Emergency Department environment. It may contain unintended and wholly unrecognized errors or omissions. Dragon Disclaimer This chart was dictated in whole or in part using Voice Recognition software in a busy, high-work load, and often noisy Emergency Department environment. It may contain unintended and wholly unrecognized errors or omissions. CAMMIE SCHMIDT MD March 25, 2021 18:00
[2021-03-25] MEDS ORDERED: ONDANSETRON PF 4 MG/2 ML VIAL. IVP ONE (18:15)
[2021-03-25] MEDS ORDERED: FAMOTIDINE 20 MG/2 ML VIAL IVP ONE (18:15)
[2021-03-25] MEDS ORDERED: IV RINGERS SOLUTION,LACTATED 1,000 ML IV SCH (18:15)
[2021-03-25] MEDS ORDERED: KETOROLAC 30 MG/ML VIAL. IVP ONE (18:15)
--- NOTE | 2021-03-25 18:27 | RAD ---
Exam: Acute abdominal series INDICATION: Pain TECHNIQUE: Frontal view of the chest and upright and supine views the abdomen Comparisons: None FINDINGS: The cardiomediastinal silhouette and pulmonary vessels are within normal limits. The lung and pleural spaces are clear. Air and stool are noted throughout the colon to level the rectum in a nonobstructive bowel gas patter n. No suspicious osseous lesions or acute fractures. IMPRESSION: 1. No acute cardiopulmonary process. 2. No acute osseous abnormality. Electronically signed by: Mariluz Riggs MD (03/25/2021 6:24 PM) [facility]
[2021-03-25 18:34] LABS: BARBITURATES NEG (NEG); BENZODIAZEPINES NEG (NEG); CANNABINOIDS NEG (NEG); COCAINE NEG (NEG); METHADONE NEG (NEG); OPIATES NEG (NEG); PHENCYCLIDINE NEG (NEG)
[2021-03-25 18:35] LABS: AMPHETAMINE/METHAMPHETAMINE NEG (NEG)
[2021-03-25] MEDS ORDERED: IOHEXOL 240 MG/ML 50ML VIAL. ONE (18:39)
[2021-03-25 18:41] LABS: BILIRUBIN,URINE NEG (NEG); CLARITY,URINE CLEAR; COLOR,URINE YELLOW; GLUCOSE,URINE NEG (NEG)
[2021-03-25 18:42] LABS: BACTERIA,URINE 0 /HPF (0-FEW); NITRITE,URINE NEG (NEG); RBC,URINE 0 /HPF (0-2); UROBILINOGEN,URINE 0.2 mg/dL (0.2 mg/dL); WBC,URINE 0 /HPF (0-4)
[2021-03-25] MEDS ORDERED: CONTRAST GIVEN. MC PRN (18:45)
[2021-03-25] MEDS ORDERED: IOHEXOL 300 MG/ML 75 ML VIAL. IV ONE (18:45)
[2021-03-25] MEDS ORDERED: MAGNESIUM HYDROXIDE 2,400 MG/30 ML ORAL.SUSP. PO ONE (18:45)
[2021-03-25 19:01] LABS: BASO # 0.1 x10^3/uL (0.0-0.2); BASO % 1 % (0-3); EOS # 0.2 x10^3/uL (0.0-0.7); EOS % 2 % (0-3); HEMATOCRIT 46.1 % (39.0-53.0); HEMOGLOBIN 15.3 g/dL (13.0-17.5); LYMPH # 2.7 x10^3/uL (1.0-4.8); LYMPH % 31 % (24-48); MEAN CORPUSCULAR HEMOGLOBIN 30 pg (25-35); MEAN CORPUSCULAR HGB CONC 33 g/dL (31-37); MEAN CORPUSCULAR VOLUME 91 fL (79-100); MONO # 0.7 x10^3/uL (0.0-1.1); MONO % 8 % (0-9); NEUT % 58 % (31-73); PLATELET COUNT 254 x10^3/uL (140-400); RED BLOOD COUNT 5.06 x10^6/uL (4.30-5.70); RED CELL DISTRIBUTION WIDTH 13.6 % (11.5-14.5); WHITE BLOOD COUNT 8.5 x10^3/uL (4.0-11.0)
[2021-03-25 19:08] LABS: CALCIUM 9.1 mg/dL (8.5-10.1); CREATININE 0.9 mg/dL (0.7-1.3); GFR 97.2; POTASSIUM 3.6 mmol/L (3.5-5.1)
[2021-03-25 19:13] LABS: ALBUMIN 3.7 g/dL (3.4-5.0); DIRECT BILIRUBIN 0.1 mg/dL (0.0-0.2); TOTAL BILIRUBIN 0.6 mg/dL (0.2-1.0); TOTAL PROTEIN 7.4 g/dL (6.4-8.2)
--- NOTE | 2021-03-25 20:12 | RAD ---
EXAMINATION: CT ABDOMEN+PELVIS W (CT ABDOMEN/PELVIS WITH IV CONTRAST) CLINICAL HISTORY: Left lower abdominal/flank pain. History of diverticulitis. TECHNIQUE: CT of the abdomen and pelvis was performed using standard technique, scanning from just ab ove the dome of the diaphragm to the symphysis pubis following administration of intravenous contrast . CT Dose Reduction Employed: One or more of the following individualized dose reduction techniques wer e utilized for this examination: 1. Automated exposure control 2. Adjustment of the mA and/or kV ac cording to patient size 3. Use of iterative reconstruction technique. COMPARISON: 03/12/2019 FINDINGS: Minimal bibasilar subsegmental atelectasis. Liver, nondistended gallbladder, pancreas, spleen, and adrenal glands unremarkable. Enlarged right renal cyst measuring up to 2.4 cm, previously 1.8 cm. Minimally filled urinary bladder suboptimally evaluated. Epiploic appendicitis along the anterior margin of the mid to distal descending colon. No diverticulo sis. No dilated bowel. Normal appendix. No abdominal aortic or iliac artery aneurysm. Multiple prominent but nonenlarged mesenteric lymph nod es, nonspecific. Grade 1 L5-S1 retrolisthesis with probable remote healed bilateral L5 spondylolysis, similar to prior study. T8 vertebral hemangioma. IMPRESSION: Epiploic appendicitis along the mid to distal descending colon. Enlarged right renal cyst. Electronically signed by: Daron Belcher DO (03/25/2021 8:09 PM) [facility]
[2021-03-25] MEDS ORDERED: cefTRIAXone SODIUM 1 GM VIAL ONE (21:05)
[2021-03-25] MEDS ORDERED: IV NORMAL SALINE 50ML 50 ML ONE (21:05)
--- NOTE | 2021-03-26 00:20 | EKG ---
[address] [address] Test Date: 2021-03-25 Test Time: 21:32:36 Pat Name: HERMELINDA SCHMIDT Department: Room: Gender: M Cap Maker: ARNEL : 1985 Requested By: CAMMIE SCHMIDT Order Number: [id number] Reading MD: Measurements Intervals [place] Rate: 82 P: 28 MT: 206 QRS: -5 QRSD: 84 T: 14 QT: 340 QTc: 400 Interpretive Statements SINUS RHYTHM LEFTWARD AXIS OTHERWISE NORMAL ECG RI6.02 No previous ECG available for comparison
== END 2021-03-25 22:00 | disposition home or self-care (01) ==
LOC: ER 17:28
DX: K37 Unspecified appendicitis (principal); I10 Essential (primary) hypertension
CPT/HCPCS: 36415; 74022; 74177; 80048; 80053; 80076; 80307; 81001; 82150; 82550; 83690; 84484; 85025; 85610; 85730; 93005; 96361; 96365; 96368; 96375; 99285; J0696; J1885; J2405; J3490; J7120; Q9967

== ENCOUNTER 2021-11-29 19:57 | Emergency (ER) | payer BC ==
[~2021-11-29] VITALS: Ht 180.3 cm; Wt 147.5 kg
--- NOTE | 2021-11-29 20:10 | PHYS DOC ---
Past History Past Medical History: Anxiety, Constipation, Depression, Diverticulitis, Hypertension, Migraines Past Surgical History: No Surgical History Alcohol Use: None Drug Use: None General Adult HPI: HPI: ".. I slipped on the ice.. my head does not hurt that bad.. a little nauseated.." Patient is a 36 year old male who presents with above hx and complaints of fall and head injury. Patient did not lose consciousness. But was stunned. Patient not on anticoagulants. Patient currently alert and oriented. Did have some nausea. No recent travel. No severe ill contacts. No history immunosuppression. Pt. follows with Dr. Barber. Review of Systems: Review of Systems: Constitutional: Denies fever or chills Eyes: Denies change in visual acuity HENT: Complains of head injury and neck pain Respiratory: Denies cough or shortness of breath Cardiovascular: Denies chest pain or edema GI: Denies abdominal pain, nausea, vomiting, bloody stools or diarrhea : Denies dysuria Musculoskeletal: Denies back pain or joint pain Integument: Denies rash Neurologic: Denies headache, focal weakness or sensory changes Endocrine: Denies polyuria or polydipsia Lymphatic: Denies swollen glands Psychiatric: Denies depression or anxiety Family History: Family History: Noncontributory to presentation Current Medications: Current Meds: See nursing for home meds Allergies: Allergies: Allergies Coded Allergies Type Severity Reaction Last Updated Verified No Known Drug Allergies 10/30/14 No Physical Exam: PE: Constitutional: Moderate acute distress, non-toxic appearance. [] HENT: Normocephalic, contusion posterior scalp, bilateral external ears normal, oropharynx moist, no oral exudates, nose normal. [] Eyes: PERRLA, EOMI, conjunctiva normal, no discharge. [] Neck: Normal range of motion, upper neck tenderness, supple, no stridor. [] Cardiovascular:Heart rate regular rhythm, no murmur [] Lungs & Thorax: Bilateral breath sounds clear to auscultation [] Abdomen: Bowel sounds normal, soft, no tenderness, no masses, no pulsatile masses. [] Skin: Warm, dry, no erythema, no rash. [] Back: No tenderness, no CVA tenderness. [] Extremities: No tenderness, no cyanosis, no clubbing, ROM intact, no edema. [] Neurologic: Alert and oriented X 3, normal motor function, normal sensory function, no focal deficits noted. DTRs +2 patella brachial. Ambulatory without problems. [id number]. Psychologic: Affect anxious, judgement normal, mood normal. [] EKG: EKG: [] Radiology/Procedures: Radiology/Procedures: [][address] [address] IMAGING REPORT Signed PATIENT: HERMELINDA SCHMIDT ACCOUNT: [id number] : 1985 LOCATION: ER AGE: 36 SEX: M EXAM STATUS: REG ER ORD. PHYSICIAN: CAMMIE SCHMIDT MD REASON: Fall, head injury, hit posterior head, pressure, headache, neck p PROCEDURE: CT HEAD AND CERVICAL SPINE WO CT brain without contrast, CT C-spine without contrast. HISTORY: Fall, head injury, trauma the posterior head, headaches, neck pain CT brain CT scan of the brain was done without contrast. Sinuses are clear. A skull fracture is not identified. There is no intracranial hemorrhage or subdural hematoma. There is no mass effect or shift of the midline. Ventricles are normal in size. An acute CVA is not identified. IMPRESSION: 1. No intracranial hemorrhage or acute finding noted. End impression CT cervical spine Axial CT images were obtained to the cervical spine. Sagittal and coronal reconstructed images were reviewed. There is no acute C-spine fracture. There is no focal disc protrusion. Thyroid is homogeneous. Disc spaces are normal in height. C-spine is in normal alignment. IMPRESSION: 1. No acute C-spine fracture noted. PQRS Compliance Statement: One or more of the following individualized dose reduction techniques were utilized for this examination: 1. Automated exposure control 2. Adjustment of the mA and/or kV according to patient size 3. Use of iterative reconstruction technique Electronically signed by: Aman Beltran MD (11/29/2021 8:44 PM) [facility] DICTATED AND SIGNED BY: AMAN BELTRAN MD DATE: 11/29/212034 CC: CAMMIE SCHMIDT MD; CAROL SERRANO ~MTH0 0 Heart Score: C/O Chest Pain: N/A Risk Factors: Risk Factors: DM, Current or recent (<one month) smoker, HTN, HLP, family history of CAD, obesity. Risk Scores: Score 0 - 3: 2.5% MACE over next 6 weeks - Discharge Home Score 4 - 6: 20.3% MACE over next 6 weeks - Admit for Clinical Observation Score 7 - 10: 72.7% MACE over next 6 weeks - Early Invasive Strategies Course & Med Decision Making: Course & Med Decision Making Pertinent Labs and Imaging studies reviewed. (See chart for details) Ice packs as needed. Tylenol for pain the next 48 hrs. If you vomit more than once, must return for exam. Follow up with Dr. Barber. . Impression: 1. Head Injury 2. Concussion [] Dragon Disclaimer: Sam Disclaimer: This electronic medical record was generated, in whole or in part, using a voice recognition dictation system. Departure Departure: Referrals: CAROL SERRANO (PCP) Sam Disclaimer This chart was dictated in whole or in part using Voice Recognition software in a busy, high-work load, and often noisy Emergency Department environment. It may contain unintended and wholly unrecognized errors or omissions. CAMMIE SCHMIDT MD Nov 29, 2021 20:10
[2021-11-29] MEDS: ONDANSETRON ODT 4 MG TAB.RAPDIS PO ONE (20:34)
--- NOTE | 2021-11-29 20:47 | RAD ---
CT brain without contrast, CT C-spine without contrast. HISTORY: Fall, head injury, trauma the posterior head, headaches, neck pain CT brain CT scan of the brain was done without contrast. Sinuses are clear. A skull fracture is not identified . There is no intracranial hemorrhage or subdural hematoma. There is no mass effect or shift of the m idline. Ventricles are normal in size. An acute CVA is not identified. IMPRESSION: 1. No intracranial hemorrhage or acute finding noted. End impression CT cervical spine Axial CT images were obtained to the cervical spine. Sagittal and coronal reconstructed images were r eviewed. There is no acute C-spine fracture. There is no focal disc protrusion. Thyroid is homogeneou s. Disc spaces are normal in height. C-spine is in normal alignment. IMPRESSION: 1. No acute C-spine fracture noted. PQRS Compliance Statement: One or more of the following individualized dose reduction techniques were utilized for this examinat ion: 1. Automated exposure control 2. Adjustment of the mA and/or kV according to patient size 3. Use of iterative reconstruction technique Electronically signed by: Aman Beltran MD (11/29/2021 8:44 PM) [facility]
[2021-11-29 21:05] VITALS: BP 151/79
== END 2021-11-29 21:05 | disposition home or self-care (01) ==
LOC: ER 19:57
DX: S06.0X9A Concussion with loss of consciousness of unspecified duration, initial encounter (principal); F41.9 Anxiety disorder, unspecified; I10 Essential (primary) hypertension; G43.909 Migraine, unspecified, not intractable, without status migrainosus; F32.9 Major depressive disorder, single episode, unspecified; W00.0XXA Fall on same level due to ice and snow, initial encounter; Y93.89 Activity, other specified; Y92.89 Other specified places as the place of occurrence of the external cause; Y99.8 Other external cause status
CPT/HCPCS: 70450; 72125; 99284; Q0162

== ENCOUNTER → 2022-03-29 | Outpatient (CLI) | payer OTHER ==
[2022-03-29 09:25] LABS: BASO % 0 % (0-3); EOS # 0.1 x10^3/uL (0.0-0.7); EOS % 2 % (0-3); HEMOGLOBIN 15.1 g/dL (13.0-17.5); LYMPH # 1.6 x10^3/uL (1.0-4.8); LYMPH % 24 % (24-48); MEAN CORPUSCULAR HEMOGLOBIN 30 pg (25-35); MEAN CORPUSCULAR HGB CONC 34 g/dL (31-37); MEAN CORPUSCULAR VOLUME 90 fL (79-100); MONO # 0.5 x10^3/uL (0.0-1.1); MONO % 8 % (0-9); NEUT # 4.3 x10^3uL (1.8-7.7); NEUT % 66 % (31-73); PLATELET COUNT 250 x10^3/uL (140-400); RED BLOOD COUNT 4.99 x10^6/uL (4.30-5.70); WHITE BLOOD COUNT 6.5 x10^3/uL (4.0-11.0)
[2022-03-29 09:37] LABS: ALBUMIN 3.6 g/dL (3.4-5.0); ALBUMIN/GLOBULIN RATIO 1.1 (1.0-1.7); CREATININE 0.9 mg/dL (0.7-1.3); GFR 96.6; POTASSIUM 3.8 mmol/L (3.5-5.1); TOTAL BILIRUBIN 0.9 mg/dL (0.2-1.0)
[2022-03-29 21:56] LABS: CHOLESTEROL/HDL RATIO 5.1; FREE T4 1.07 ng/dL (0.76-1.46); THYROID STIM HORMONE (TSH) 1.567 uIU/mL (0.358-3.740)
== END ==
LOC: LAB 07:43
PROVIDERS: ATTEND Physician Assistant
DX: Z00.00 Encounter for general adult medical examination without abnormal findings (principal); Z11.2 Encounter for screening for other bacterial diseases; Z11.3 Encounter for screening for infections with a predominantly sexual mode of transmission; I10 Essential (primary) hypertension
CPT/HCPCS: 36415; 80053; 80061; 84439; 84443; 85025; 86592; 86695; 86703; 86705; 86709; 86803; 87340